=== PATIENT | male | born 1955 | race Caucasian/White ===

== ENCOUNTER → 2021-03-20 14:11 | Outpatient (CLI) | payer MEDICARE, SELFPAY ==
--- NOTE | ~2021-03-20 | MR_ITS ---
EXAMINATION: MR knee RT wo con DATE: 03/20/2021 15:23 INDICATION: Right knee pain TECHNIQUE: Magnetic resonance imaging (MRI) of the right knee was performed without intravenous contr ast. Sequences included coronal PD-weighted FSE, coronal PD-weighted FS FSE, sagittal T2-weighted FS E, sagittal PD-weighted FS FSE and axial PD weighted fat saturated FSE. COMPARISON: None. FINDINGS: Medial compartment: Complex tear of the body and posterior horn of the medial meniscus with macerated appearance to the m edial extruded meniscal body. Extensive full and near full-thickness cartilage loss along the anterio r to central weightbearing medial femoral condyle with subarticular edema and eburnation at the anter ior weightbearing medial femoral condyle. Similar cartilage loss along portions of the medial tibial plateau also likely full/near full-thickness with more focal 6 subarticular edema and eburnation dayanara g the medial rim of the medial tibial plateau. Lateral compartment: Lateral meniscus is normal. Shallow chondral fissuring involving less than 50% the cartilage thicknes s along the anterior to posterior medial side of the lateral tibial plateau. Small region of partial- thickness chondral ulceration and deep fissuring with underlying small central subchondral osteophyte at the last. The posterior weightbearing lateral femoral condyle. Patellofemoral compartment: Full/near full-thickness chondral ulceration at the cephalad two thirds of the medial patellar facet and apical ridge and superomedial aspect of the lateral facet with a few tiny foci of mild subarticul ar edema. Partial-thickness cartilage loss with deep chondral fissuring at the medial trochlea, troch lear groove and medial side of the lateral trochlea. Mild cortical irregularity and subarticular acosta a along the anterior aspect of the medial trochlea. Ligaments and tendons: Anterior and posterior cruciate ligaments are normal. The fibular collateral ligament is normal. Mild thickening of the proximal medial collateral ligament which there is thickened with increased intras ubstance signal consistent with partial tear. There is edema surrounding the proximal medial collater al ligament which could be seen with recent partial tear of the ligament which could represent reacti ve edema related to the underlying complex medial meniscal tear. Mild patellar and distal quadriceps tendinopathy without discrete tear. The visualized medial and lateral hamstring tendons as well as th e iliotibial band are normal. Fluid: Moderate-sized right knee joint effusion with scattered synovitis most prominent along the posterior margin of Hoffa's fat pad and at the medial and lateral gutters of the suprapatellar pouch. No loose osteochondral bodies identified. Osseous/other: Bone alignment is normal. No fracture or pathologic marrow replacing process. IMPRESSION: 1. Complex medial meniscal tear with macerated appearance to the meniscal body. 2. 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 3. Age-indeterminate partial tear of the proximal medial collateral ligament. 4. Likely reactive moderate sized right knee joint effusion. 5. Mild patellar and distal quadriceps tendinopathy without discrete tear. Reviewed, dictated and finalized at location A. IMPRESSION: 1. Complex medial meniscal tear with macerated appearance to the meniscal body. 2. Moderate medial compartment predominant tricompartmental osteoarthritis with regions of moderate to high-grade chondral malacia in all 3 compartments most extensive in the medial and patellofemoral co
== END ==
DX: M25.561 Pain in right knee (principal); S83.231A Complex tear of medial meniscus, current injury, right knee, initial encounter; M17.11 Unilateral primary osteoarthritis, right knee; M94.261 Chondromalacia, right knee; S83.411A Sprain of medial collateral ligament of right knee, initial encounter; M25.461 Effusion, right knee
CPT/HCPCS: 73721